=== PATIENT | female | born 1950 | race Caucasian/White ===

== ENCOUNTER 2017-02-25 14:26 | Emergency (ER) | payer MEDICARE ==
[~2017-02-25] VITALS: Ht 154.9 cm; Wt 118.0 kg
[2017-02-25] MEDS ORDERED: ONDANSETRON 2MG/ML, 2ML ONE (15:09)
[2017-02-25] MEDS ORDERED: HYDROmorphone 1 MG/ML, 1ML ONE (15:09)
[2017-02-25 15:18] LABS: HEMOGLOBIN 11.8 g/dL (11.7-16.4)
[2017-02-25 15:28] LABS: ASPARTATE AMINO TRANSFERASE 11 U/L (15-37); BLOOD UREA NITROGEN 15 mg/dL (7-18)
[2017-02-25] MEDS ORDERED: ONDANSETRON 2MG/ML, 2ML IVPush ONE (15:30)
[2017-02-25] MEDS ORDERED: SODIUM CHLORIDE FLUSH 10ML SYR IVF ONE (15:30)
[2017-02-25] MEDS ORDERED: HYDROmorphone 1 MG/ML, 1ML IVPush PRN (15:30)
[2017-02-25] MEDS ORDERED: SODIUM CHLORIDE 0.9% 1,000ML IVBOLUS ONE (15:30)
[2017-02-25] MEDS ORDERED: OMNIPAQUE 350 MG/ML, 100ML BOTTLE ONE (16:07)
[2017-02-25] MEDS ORDERED: METRONIDAZOLE PMX 500MG/100ML 100 ML IV ONE (17:00)
[2017-02-25] MEDS ORDERED: AMPICILLIN/SULBACTAM 3 GM in SODIUM CHLORIDE 0.9% 100 ML IV ONE (17:00)
[2017-02-25] MEDS ORDERED: METRONIDAZOLE PMX 500MG/100ML 100 ML ONE (17:22)
[2017-02-25 19:41] VITALS: BP 134/76
== END 2017-02-25 19:43 | disposition home or self-care (01) ==
LOC: ED 19:32
DX: K57.32 Diverticulitis of large intestine without perforation or abscess without bleeding (principal); I11.0 Hypertensive heart disease with heart failure; I50.9 Heart failure, unspecified; K50.90 Crohn's disease, unspecified, without complications; Z90.89 Acquired absence of other organs; Z98.51 Tubal ligation status; Z90.49 Acquired absence of other specified parts of digestive tract
CPT/HCPCS: 36415; 74177; 80053; 81001; 83690; 85025; 87086; 93005; 96361; 96365; 96375; 99285; J0295; J1170; J2405; J7030; Q9967

== ENCOUNTER 2017-07-08 12:15 | Emergency (ER) | payer MEDICARE ==
[~2017-07-08] VITALS: Ht 154.9 cm; Wt 116.0 kg
[2017-07-08] MEDS ORDERED: SODIUM CHLORIDE FLUSH 10ML SYR IVF ONE (13:00)
[2017-07-08] MEDS ORDERED: ONDANSETRON 2MG/ML, 2ML IVPush ONE (13:00)
[2017-07-08] MEDS ORDERED: MORPHINE SULFATE 4 MG/ML, 1ML IVPush PRN (13:00)
[2017-07-08] MEDS ORDERED: MORPHINE SULFATE 4 MG/ML, 1ML ONE (13:40)
[2017-07-08] MEDS ORDERED: ONDANSETRON 2MG/ML, 2ML ONE (13:40)
[2017-07-08 13:45] LABS: HEMATOCRIT 39.8 % (34.6-47.8); HEMOGLOBIN 13.2 g/dL (11.7-16.4); WHITE BLOOD COUNT 8.2 x10^3/uL (3.4-10)
[2017-07-08 14:01] LABS: ASPARTATE AMINO TRANSFERASE 15 U/L (15-37); BLOOD UREA NITROGEN 13 mg/dL (7-18)
[2017-07-08] MEDS ORDERED: LISI-167 PO (14:19)
[2017-07-08] MEDS ORDERED: OMNIPAQUE 350 MG/ML, 150 ML BOTTLE ONE (14:55)
[2017-07-08 16:06] VITALS: BP 126/69
== END 2017-07-08 17:11 | disposition home or self-care (01) ==
LOC: ED 14:38
DX: K43.9 Ventral hernia without obstruction or gangrene (principal); E11.9 Type 2 diabetes mellitus without complications; K50.90 Crohn's disease, unspecified, without complications; I11.0 Hypertensive heart disease with heart failure; I50.9 Heart failure, unspecified; Z88.8 Allergy status to other drugs, medicaments and biological substances; Z90.49 Acquired absence of other specified parts of digestive tract
CPT/HCPCS: 36415; 74177; 80053; 81003; 83690; 85025; 96374; 96375; 99285; J2405; Q9967

== ENCOUNTER 2017-08-06 12:43 | Emergency (ER) | payer MEDICARE ==
[~2017-08-06] VITALS: Ht 154.9 cm; Wt 116.0 kg
[~2017-08-06 12:43] MED LIST: LISI-167 PO
[2017-08-06] MEDS ORDERED: SODIUM CHLORIDE 0.9% 1,000 ML IV ONE (13:16)
[2017-08-06] MEDS ORDERED: MECLIZINE CHEWABLE 25 MG TAB ONE (13:29)
[2017-08-06] MEDS ORDERED: MECLIZINE CHEWABLE 25 MG TAB PO ONE (13:30)
[2017-08-06 13:37] LABS: HEMATOCRIT 38.4 % (34.6-47.8); HEMOGLOBIN 12.7 g/dL (11.7-16.4); WHITE BLOOD COUNT 7.7 x10^3/uL (3.4-10)
[2017-08-06 13:48] LABS: BLOOD UREA NITROGEN 14 mg/dL (7-18)
[2017-08-06 14:25] VITALS: BP 120/80
== END 2017-08-06 15:09 | disposition home or self-care (01) ==
LOC: ED 13:37
DX: R42 Dizziness and giddiness (principal); R53.1 Weakness; I11.0 Hypertensive heart disease with heart failure; I50.9 Heart failure, unspecified; E11.9 Type 2 diabetes mellitus without complications; K50.90 Crohn's disease, unspecified, without complications; Z98.51 Tubal ligation status; Z88.8 Allergy status to other drugs, medicaments and biological substances
CPT/HCPCS: 36415; 70450; 80048; 82040; 85025; 85610; 85730; 93005; 96360; 99285; J7030

== ENCOUNTER 2017-09-07 07:54 | Day surgery (SDC) | payer MEDICARE ==
[~2017-09-07] VITALS: Ht 152.4 cm; Wt 119.8 kg
[~2017-09-07 07:54] MED LIST changes: +CALC-534 PO; +CRAN1CAP9 PO; +MAGNESIUM PO; +MULT-717 PO; +POTASSIUM CHLORIDE PO; +SELINIUM PO; +[UNRECOGNIZED DRUG - OTHER] PO
[2017-09-07] MEDS ORDERED: LACTATED RINGERS 1,000 ML IV SCH (08:51)
[2017-09-07 08:52] VITALS: BP 180/108
[2017-09-07] MEDS ORDERED: hydrALAzine 20 MG/ML, 1ML ONE (09:03)
[2017-09-07] MEDS ORDERED: FENTANYL PF 250 MCG/5ML ONE (09:09)
[2017-09-07] MEDS ORDERED: EPHEDRINE 50 MG/ML, 1ML ONE (09:09)
[2017-09-07] MEDS ORDERED: ROCURONIUM 10 MG/ML ONE (09:09)
[2017-09-07] MEDS ORDERED: MIDAZOLAM 1 MG/ML, 2ML ONE (09:09)
[2017-09-07] MEDS ORDERED: PROPOFOL 10 MG/ML, 20ML ONE (09:09)
[2017-09-07] MEDS ORDERED: CEFAZOLIN 1,000 MG ONE ×3 (09:10→09:41)
[2017-09-07 09:27] VITALS: BP 144/90
[2017-09-07] MEDS ORDERED: DOCU100C33 PO (09:32)
[2017-09-07] MEDS ORDERED: SUCCINYLCHOLINE 20 MG/ML, 10ML ONE (09:42)
[2017-09-07] MEDS ORDERED: BUPIVACAINE/PF 0.5% ONE ×2 (09:46→11:37)
[2017-09-07] MEDS ORDERED: EPINEPHRINE 1 MG/ML, 1ML ONE ×2 (09:46→11:37)
[2017-09-07] MEDS ORDERED: BACITRACIN 50,000 UNIT ONE (09:46)
[2017-09-07] MEDS ORDERED: LABETALOL 5MG/ML, 20ML ONE (10:57)
[2017-09-07] MEDS ORDERED: GLYCOPYRROLATE 0.2MG/1ML, 5ML ONE (11:35)
[2017-09-07] MEDS ORDERED: NEOSTIGMINE 1 MG/ML, 10ML ONE (11:35)
[2017-09-07] MEDS ORDERED: HYDROmorphone 1 MG/ML, 1ML ONE (11:52)
[2017-09-07] MEDS ORDERED: HYDROmorphone 1 MG/ML, 1ML IV PRN (12:30)
[2017-09-07] MEDS ORDERED: LABETALOL 5MG/ML, 20ML IV PRN (12:30)
[2017-09-07] MEDS ORDERED: ACETAMINOPHEN 325 MG TABLET PO PRN (12:30)
[2017-09-07] MEDS ORDERED: hydrALAzine 20 MG/ML, 1ML IV PRN (12:30)
[2017-09-07] MEDS ORDERED: ACETAMINOPHEN 325 MG TABLET ONE (12:30)
[2017-09-07] MEDS ORDERED: ACETAMINOPHEN 650 MG/20.3 ML UDC ONE (12:30)
[2017-09-07] MEDS ORDERED: PROMETHAZINE 25 MG/ML, 1ML IV PRN (12:30)
[2017-09-07] MEDS ORDERED: OXYcodone 5 MG/5 ML ORAL.SOL UDC ONE ×2 (12:35→13:27)
[2017-09-07] MEDS: OXYcodone 5 MG/5 ML ORAL.SOL UDC PO PRN ×2 (12:40→13:25)
[2017-09-07] MEDS ORDERED: PROMETHAZINE 25 MG/ML, 1ML ONE (12:42)
[2017-09-07] MEDS ORDERED: ONDANSETRON 2MG/ML, 2ML ONE (12:42)
[2017-09-07] MEDS ORDERED: FENTANYL PF 100 MCG/2ML ONE (12:59)
[2017-09-07] MEDS: FENTANYL PF 100 MCG/2ML IV PRN ×2 (13:00→13:20)
[2017-09-07] MEDS ORDERED: KETOROLAC 30 MG/1 ML ONE (13:07)
[2017-09-07] MEDS ORDERED: KETOROLAC 30 MG/1 ML IVPush PRN (13:30)
[2017-09-07] MEDS ORDERED: HYDROcodone/APAP 7.5-325MG/15ML UDC ONE (13:40)
[2017-09-07] MEDS ORDERED: HYDROcodone/APAP 7.5-325MG/15ML UDC PO PRN (14:00)
== END 2017-09-07 17:45 ==
LOC: OUT 07:54
PROVIDERS: ATTEND Surgery
DX: K43.0 Incisional hernia with obstruction, without gangrene (principal); K44.9 Diaphragmatic hernia without obstruction or gangrene; K21.9 Gastro-esophageal reflux disease without esophagitis; Z87.39 Personal history of other diseases of the musculoskeletal system and connective tissue; E66.9 Obesity, unspecified; Z68.43 Body mass index [BMI] 50.0-59.9, adult; Z85.3 Personal history of malignant neoplasm of breast; Z88.5 Allergy status to narcotic agent
CPT/HCPCS: 49657; C1781; J0171; J0330; J0360; J0690; J1170; J1885; J2250; J2550; J2704; J2710; J3010; J3490; J7120

== ENCOUNTER → 2018-02-04 | Outpatient (CLI) | payer MEDICARE ==
[~2018-02-04] MED LIST changes: +DOCU100C33 PO; +TRAM50TA2 PO
[2018-02-04 13:45] LABS: ALANINE AMINOTRANSFERASE 18 U/L (12-78); ALBUMIN 3.6 g/dL (3.4-5.0); ANION GAP 9 mmol/L (5-15); CALCIUM 9.2 mg/dL (8.5-10.1); CHLORIDE 108 mmol/L (98-107); CREATININE 0.74 mg/dL (0.55-1.02)
[2018-02-04 13:47] LABS: ALKALINE PHOSPHATASE 86 U/L (45-117); BILIRUBIN,TOTAL 0.4 mg/dL (0.2-1.0); TOTAL PROTEIN 7.3 g/dL (6.4-8.2)
== END | disposition home or self-care (01) ==
LOC: STAR 12:39
PROVIDERS: ATTEND Obstetrics & Gynecology Female Pelvic Medicine and Reconstructive Surgery
DX: Z01.818 Encounter for other preprocedural examination (principal); N81.6 Rectocele; N81.2 Incomplete uterovaginal prolapse; R10.2 Pelvic and perineal pain; N39.3 Stress incontinence (female) (male)
CPT/HCPCS: 36415; 80053; 93005

== ENCOUNTER 2018-02-08 05:35 | Day surgery (SDC) | payer MEDICARE ==
[~2018-02-08] VITALS: Ht 152.4 cm; Wt 109.3 kg
[2018-02-08] MEDS ORDERED: ONDANSETRON 2MG/ML, 2ML ONE (06:38)
[2018-02-08] MEDS ORDERED: DEXAMETHASONE 4 MG/ML, 1ML ONE (06:38)
[2018-02-08] MEDS ORDERED: GLYCOPYRROLATE 0.2MG/1ML, 5ML ONE (06:38)
[2018-02-08] MEDS ORDERED: CEFAZOLIN 1,000 MG ONE (06:38)
[2018-02-08] MEDS ORDERED: ROCURONIUM 10 MG/ML,10ML ONE (06:38)
[2018-02-08] MEDS ORDERED: SUCCINYLCHOLINE 20 MG/ML, 10ML ONE (06:38)
[2018-02-08] MEDS ORDERED: NEOSTIGMINE 1 MG/ML, 10ML ONE (06:38)
[2018-02-08] MEDS ORDERED: PROPOFOL 10 MG/ML, 20ML ONE ×4 (06:38→08:54)
[2018-02-08] MEDS ORDERED: LACTATED RINGERS 1,000 ML IV SCH (06:41)
[2018-02-08 06:42] VITALS: BP 187/62
[2018-02-08] MEDS ORDERED: FENTANYL PF 100 MCG/2ML ONE (06:44)
[2018-02-08] MEDS ORDERED: EPINEPHRINE 1 MG/ML, 1ML ONE (07:00)
[2018-02-08] MEDS ORDERED: BUPIVACAINE/PF 0.25% ONE (07:00)
[2018-02-08] MEDS ORDERED: NEOMY/POLYMYXIN B GU IRR. 1 ML IRRIG ONE (07:00)
[2018-02-08] MEDS ORDERED: SUGAMMADEX 200 MG/2 ML IVPush ONE (07:31)
[2018-02-08] MEDS ORDERED: KETOROLAC 30 MG/1 ML ONE (07:38)
[2018-02-08] MEDS ORDERED: HYDROcodone/APAP 7.5-325MG/15ML UDC PO PRN (08:00)
[2018-02-08] MEDS ORDERED: KETOROLAC 30 MG/1 ML IM PRN ×2 (08:00)
[2018-02-08] MEDS ORDERED: ACETAMINOPHEN 325 MG TABLET PO PRN (08:00)
[2018-02-08] MEDS ORDERED: KETOROLAC 30 MG/1 ML IV PRN ×2 (08:00)
[2018-02-08] MEDS ORDERED: MEPERIDINE/PF 25MG/0.5ML IVPush PRN (08:00)
[2018-02-08] MEDS ORDERED: HYDROmorphone 1 MG/ML, 1ML IV PRN (08:00)
[2018-02-08] MEDS ORDERED: FENTANYL PF 100 MCG/2ML IV PRN (08:00)
[2018-02-08] MEDS ORDERED: ONDANSETRON 2MG/ML, 2ML IVPush PRN (08:00)
[2018-02-08] MEDS ORDERED: morphine SULFATE 10 MG/ML, 1ML IV PRN (08:00)
[2018-02-08] MEDS ORDERED: OXYcodone 5 MG/5 ML ORAL.SOL UDC PO PRN (08:00)
== END 2018-02-08 14:35 ==
LOC: OUT 05:35
PROVIDERS: ATTEND Obstetrics & Gynecology Female Pelvic Medicine and Reconstructive Surgery
DX: N81.4 Uterovaginal prolapse, unspecified (principal); N39.46 Mixed incontinence; N94.10 Unspecified dyspareunia; E78.00 Pure hypercholesterolemia, unspecified; Z98.890 Other specified postprocedural states; Z98.51 Tubal ligation status; Z90.49 Acquired absence of other specified parts of digestive tract; Z88.5 Allergy status to narcotic agent
CPT/HCPCS: 57265; 57282; 57288; 58552; 88307; C1771; J0171; J0690; J1100; J1885; J2405; J2704; J3010; J3490; J7120; J2710; J0330

== ENCOUNTER → 2018-03-23 | Outpatient (CLI) | payer MEDICARE | END | disposition home or self-care (01) | LOC: CFH 14:57 | PROVIDERS: ATTEND Family Medicine | DX: M75.51 Bursitis of right shoulder (principal); M65.821 Other synovitis and tenosynovitis, right upper arm; M19.011 Primary osteoarthritis, right shoulder ==

== ENCOUNTER → 2018-08-13 | Outpatient (CLI) | payer MEDICARE ==
[~2018-08-13] MED LIST changes: +TRAV5DRO EACHEYE
== END | disposition home or self-care (01) ==
LOC: CFH 15:04
PROVIDERS: ATTEND Physical Medicine & Rehabilitation Pain Medicine
DX: M48.061 Spinal stenosis, lumbar region without neurogenic claudication (principal); M50.30 Other cervical disc degeneration, unspecified cervical region; M47.812 Spondylosis without myelopathy or radiculopathy, cervical region; M47.816 Spondylosis without myelopathy or radiculopathy, lumbar region; J44.9 Chronic obstructive pulmonary disease, unspecified; I50.9 Heart failure, unspecified
CPT/HCPCS: 72141; 72148

== ENCOUNTER 2020-01-04 12:34 | Emergency (ER) | payer MEDICARE ==
[~2020-01-04] VITALS: Ht 152.4 cm; Wt 120.0 kg
[2020-01-04 13:35] VITALS: BP 154/74
== END 2020-01-04 15:16 | disposition home or self-care (01) ==
LOC: ED 15:10
DX: S30.0XXA Contusion of lower back and pelvis, initial encounter (principal); I11.0 Hypertensive heart disease with heart failure; I50.9 Heart failure, unspecified; K21.9 Gastro-esophageal reflux disease without esophagitis; K50.90 Crohn's disease, unspecified, without complications; Z87.891 Personal history of nicotine dependence; W18.30XA Fall on same level, unspecified, initial encounter; Y93.89 Activity, other specified; Y92.410 Unspecified street and highway as the place of occurrence of the external cause; Y99.8 Other external cause status
CPT/HCPCS: 72110; 72220; 99284